=== PATIENT | female | born 1940 | race Caucasian/White ===

== ENCOUNTER 2017-08-02 13:47 | Outpatient (CLI) | payer MEDICARE ==
--- NOTE | 2017-08-02 15:34 | RAD ---
THREE VIEWS OF THE LUMBAR SPINE: Indication: Burst fracture of T11 and T12. FINDINGS: There is a moderate wedge compression abnormality of L3 with slight retrolisthesis of L3 on L4 with n o apparent abnormal translational motion. There is a severe compression abnormality involving T11 wit h some very mild retropulsion of bone fragments from the posterior margin of the vertebra approximate ly 4 mm. There is diffuse osteopenia. There is moderate multilevel spondylosis of the thoracic spine. There is prominent vascular calcification involving the abdominal aorta. IMPRESSION: 1. Moderate compression abnormality of L3 without abnormal translational motion. 2. Mild retrolisthesis of L3 on L4. 3. Moderate multiple level spondylosis thoracic spine. 4. Severe compression abnormality of T11. POS: [facility]
--- NOTE | 2017-08-02 15:34 | RAD ---
THORACIC SPINE THREE VIEWS WITHOUT CONTRAST: INDICATIONS: History of back pain. FINDINGS: There is a severe compression abnormality of the expected T11 level. There is a moderate compression abnormality of L3. There is diffuse osteopenia. Mild wedging is seen at T10, likely related to a m ild compression abnormality. Prominent vascular calcification. There is mild thoracolumbar scoliosi s. 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 IMPRESSION: 1. Severe compression abnormality of T11. 2. Mild compression abnormality of T10. 3. Moderate compression abnormality at L3. 4. Severe osteopenia. POS: [facility]
== END 2017-08-02 13:48 | disposition home or self-care (01) ==
LOC: TBSIIMAG 13:47
PROVIDERS: ATTEND Surgery
DX: S22.081A Stable burst fracture of T11-T12 vertebra, initial encounter for closed fracture (principal); S32.001A Stable burst fracture of unspecified lumbar vertebra, initial encounter for closed fracture; M43.16 Spondylolisthesis, lumbar region; M47.894 Other spondylosis, thoracic region; G95.29 Other cord compression; M85.88 Other specified disorders of bone density and structure, other site
CPT/HCPCS: 72072; 72100